=== PATIENT | male | born 1995 | race Caucasian/White ===

== ENCOUNTER 2022-03-19 08:33 | Emergency (ER) | payer BC, SELFPAY ==
--- NOTE | ~2022-03-19 | US_ITS ---
EXAMINATION: US scrotum doppler DATE: 03/19/2022 09:20 INDICATION: Right testicular pain TECHNIQUE: Testicular sonogram utilizing grayscale and Doppler COMPARISON: None. FINDINGS: The right testis measures 5.5 x 3.4 x 2.5 cm. The left testis measures 4.9 x 4.0 x 2.4 cm. Symmetric normal grayscale appearance to both testes. Facet flow with arterial and venous waveforms in both oscar oscar. There is asymmetric hyperemia to the right testis. Subtle asymmetric swelling and decreased echo genicity of the right epididymis, also with increased vascular flow relative to the normal left epidi dymis.. There is no varicocele or hydrocele. IMPRESSION: 1. Right sided epididymoorchitis with hyperemic normal-appearing right testis and hyperemic and mild ly edematous right epididymis. Reviewed, dictated and finalized at location A. IMPRESSION: 1. Right sided epididymoorchitis with hyperemic normal-appearing right testis and hyperemic and mildly edematous right epididymis.
[2022-03-19 08:35] VITALS: BP 151/92; PULSE 89; PULSE 93; RESP 16; RESP 17; TEMP 37.2; O2SAT 98; O2SAT 99
--- NOTE | 2022-03-19 08:47 | PC.NURSE ---
Pt ambulatory to bathroom, attempting a clean urine at this time.
--- NOTE | 2022-03-19 08:53 | ED.MALEGU ---
HPI - Male Genitourinary General Chief complaint: Urogenital-Male Stated complaint: SWOLLEN TESTICLE Source: patient and RN notes reviewed Mode of arrival: ambulatory Limitations: no limitations History of Present Illness Complaint: testicle pain Onset (ago): day(s) (1) Duration: constant Location: right testicle Severity: severe Quality: aching, sharp and stabbing Relieving factors: none Exacerbating factors: palpation and movement Associated symptoms: Reports denies other symptoms Related Data Sexually active: Yes Allergies Allergy/AdvReac Type Severity Reaction Status Date / Time Sulfa (Sulfonamide Allergy Unknown Verified 03/19/22 08:40 Antibiotics) Review of Systems Review of Systems: All systems reviewed & are unremarkable except as noted in HPI and below PMFSH Past Medical History Medical History (Updated 03/19/22 @ 09:39 by Rober Davis MD) No active medical problems Surgical History Surgical History (Updated 03/19/22 @ 09:01 by Rober Davis MD) No pertinent past surgical history Social History Social History (Updated 03/19/22 @ 09:01 by Rober Davis MD) Smoking status: Never smoker Substance use: current Substance use type: marijuana Exam Const: General: healthy appearing, no acute distress and alert Nutritional Appearance: well nourished Limitations: no limitations HENMT: Head: normal to inspection Eyes: Conjunctivae: conjunctivae normal Pupils: Equal, round and reactive pupils present EOM: EOMs intact bilaterally Neck: Neck: normal visual inspection Resp: Effort & Inspection: normal respiratory effort Auscultation: clear to auscultation bilaterally Cardio: Rate: regular rate Rhythm: regular rhythm GI: GI Palp: Yes Soft to palpation and No Tenderness to palpation present (GI) Auscultation: normal bowel sounds : Male General Exam: Yes normal external exam Penis: Yes normal penis Scrotum: scrotum normal Testes: testicular tenderness on the right (severe) Back/Spine/Pelvis: Cervical Spine: cervical ROM normal Thoracic/Lumbar Spine: thoraco-lumbar ROM normal Skin: General skin exam: normal color Rashes: no rashes Neuro: General: patient oriented x3, moves all extremities and no focal motor deficits Cranial nerves: Yes CN's II-XII intact bilaterally Speech: normal speech Gait exam (Neuro): Normal gait present Extrem: General: normal to inspection and no clubbing, cyanosis or edema Psych: Mental Status: mental status grossly normal Affect: normal affect Attitude: cooperative Course Vital Signs Vital signs: Vital Signs Temperature 37.2 C 03/19/22 08:35 Pulse Rate 89 03/19/22 08:35 Respiratory Rate 17 03/19/22 08:35 Blood Pressure 151/92 H 03/19/22 08:35 Pulse Oximetry 99 03/19/22 08:35 Oxygen Delivery Room Air 03/19/22 08:35 Temperature 36.9 C 03/19/22 09:54 Pulse Rate 64 03/19/22 09:54 Respiratory Rate 16 03/19/22 09:54 Blood Pressure 149/90 H 03/19/22 09:54 Pulse Oximetry 100 03/19/22 09:54 Oxygen Delivery Room Air 03/19/22 09:54 MDM - Male Genitourinary Lab Data Attestation: I reviewed the patient's lab results. Labs: Lab Results 03/19/22 Range/Units 08:48 Urine Color Light yellow (Yellow) Urine Appearance Clear (Clear) Urine pH 7.5 (5.0-8.0) Ur Specific [place] 1.015 (1.010-1.020) Urine Protein Negative (Negative) Urine Glucose (UA) Negative (Negative) Urine Ketones Negative (Negative) Ur Blood (Man) Negative (Negative) Urine Nitrate Negative (Negative) Urine Bilirubin Negative (Negative) Urine Urobilinogen 0.2 (0.2-1.0) mg/dL Leukocyte Esterase Rfl Negative (Negative) BASILIO/UL Urine Characteristics Clear Discharge Plan Discharge Clinical Impression: Acute epididymo-orchitis Patient Disposition: Home, Self-Care Condition: Stable Instructions: Epidid
--- NOTE | 2022-03-19 08:54 | PC.NURSE ---
MD assessing patient at this time
[2022-03-19 09:07] LABS: Appearance Urine Clear (Clear); Bilirubin Urine Negative (Negative); Blood Urine Negative (Negative); Glucose Urine UA Negative (Negative); Ketones Urine Negative (Negative); Leukocyte Esterase Ur Negative LEU/UL (Negative); Nitrate Urine Negative (Negative); Protein Urine Negative (Negative); Specific Grav Ur 1.015 (1.010-1.020); Urobilinogen Urine 0.2 mg/dL (0.2-1.0); pH Urine 7.5 (5.0-8.0)
--- NOTE | 2022-03-19 09:08 | PC.NURSE ---
Pt off floor for US
[2022-03-19 09:12] LABS: Add Urine Microscopic? NO; Color Urine Light Yellow (Yellow)
[2022-03-19 09:54] VITALS: BP 149/90; PULSE 64; RESP 16; TEMP 36.9; O2SAT 100
== END 2022-03-19 09:54 | disposition home or self-care (01) ==
PROVIDERS: Emergency Provider Emergency Medicine
DX: N45.3 Epididymo-orchitis (principal)
CPT/HCPCS: 76870; 81003; 93976; 99284

== ENCOUNTER 2024-07-25 17:32 | Emergency (ER) | payer BC, SELFPAY ==
--- NOTE | ~2024-07-25 | XR_ITS ---
HISTORY: fall/ALL OVER KNEE PAIN COMPARISON: None TECHNIQUE: 4 views of the right knee were performed FINDINGS: No acute or subacute fracture. Medial tibiofemoral joint space narrowing is identified. Large suprapatellar joint effusion is identified. The infrapatellar joint space is clear. IMPRESSION: Large suprapatellar joint effusion, without acute fracture. Reviewed, dictated and finalized at location A. T ORDERLY
[2024-07-25 17:33] VITALS: BP 163/103; PULSE 110; RESP 16; TEMP 37.1; O2SAT 97
--- OUTSIDE RECORDS SUMMARY | 2024-07-25 17:34 | XMS_ITS | Clinical Summary ---
Author Organization [facility] Address [address] [place] [address] Care Team Providers Care Traffic Superintendent Name Role Phone None, Provider MD Primary Care Provider Unavaila ble Allergies Active Allergy Reactions Criticality Noted Date Comments Sulfa Antibiotics Unknown,Vomiting 01/14/2019 Medications No known medications Active Problems No known active problems Encounters Date Type Department Care Team Description 06/29/2024 8:32 AM [employer] [facility] - 06/29/2024 10:25 AM [employer] [facility] [address] [place] [address] [place] [address] Abad Hair MD Generalized Weakness Discharge Disposition: Home or Self Care (Routine Discharge) 06/29/2024 Travel from Last 3 Months Social History Tobacco Use Types Packs/Day Years Used Date Smoking Tobacco: Never Smokeless Tobacco: Never Tobacco Cessation:Counseling Given: Not Answered Alcohol Use Standard Drinks/Week Comments Never 0 (1 standard drink = 0.6 oz pur e alcohol) Sex and Gender Information Value Date Recorded Sex Assigned at Male 06/29/2024 8:47 AM [employer] Legal Sex Male 5:59 PM [employer] Gender Identity Not on file Sexual Orientation Not on file Last Filed Vital Signs Vital Sign Reading Time Taken Comments Blood Pressure 142/89 06/29/2024 10:05 AM [employer] Pulse 68 06/29/2024 8:38 AM [employer] Temperature 36.6 C (97.9 F) 06/29/2024 8:38 AM [employer] Respiratory Rate 16 06/29/2024 8:38 AM [employer] Oxygen Saturation 99% 06/29/2024 10:05 AM [employer] Inhaled Oxygen Concentration - - Weight 108.9 kg (240 lb) 06/29/2024 8:38 AM [employer] Height 170.2 cm (5' 7 ) 06/29/2024 8:38 AM [employer] Body Mass Index 37.59 06/29/2024 8:38 AM [employer] Plan of Treatment Health Maintenance Due Date Last Done Comments Annual Physical 12/18/1999 Hepatitis C 2014 DTaP, Tdap and Td Vaccines (4 - Tdap) 12/18/2015 04/19/1998, 07/07/1997, 04/25/1997, Additional history exists COVID-19 Vaccine ( season) 2024 Influenza Adult (#1) 2024 Hepatitis B Vaccines Completed 07/07/1997, 02/23/1997, 1996 HPV Vaccines Aged Out No longer eligi ble based on patient's age to complete this topic Meningococcal B Vaccine Aged Out No l onger eligible based on patient's age to complete this topic Meningococcal Vaccine Aged Out No sabas augustine eligible based on patient's age to complete this topic Pneumococcal Vaccine: Pediatrics (0 to 5 Years) and At-Risk Patients (6 to 64 Years) Aged Out No longer eligible based on patient's age to complete this topic RSV Immunizations Under 20 Months Aged Out No longer eligible based on patient's age to complete this topic Procedures Procedure Name Priority Date/Time Associated Diagnosis Comments ECG 12-LEAD Routine 06/29/2024 9:19 AM [employer] CORONAVIRUS (COVID-19) ANTIGEN STAT 06/29/2024 9:08 AM [employer] INFLUENZA A & B STAT 06/29/2024 9:08 AM [employer] TROPONIN, QUANT STAT 06/29/2024 9:03 AM [employer] COMPREHENSIVE METABOLIC PANEL STAT 06/29/2024 9:03 AM [employer] CBC W/DIFF AUTOMATED STAT 06/29/2024 9:03 AM SMO[facility] [employer] CT HEAD WO CON STAT 06/29/2024 8:58 AM SMO[employer] from Last 3 Months Results * ECG 12 lead (06/29/2024 9:19 AM S[employer]) 06/29/2024 9:19 AM [employer] Narrative [facility] - 06/29/2024 2:23 PM [employer] [address] 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1995 Requested By: ABAD HAIR Order Number: [id number] Reading : Kevin Almanzar Measurements Intervals [place] Rate: 55 P: 60 VT: 149 QRS: 55 QRSD: 102 T: 59 QT: 433 QTc: 417 Interpretive Statements SINUS BRADYCARDIA WITH MARKED SINUS ARRHYTHMIA noise ING TOBACCO P[employer]ER HAND us Abad Hair MD ECG ORDERABLES Final Resul t [facility] * CORONAVIRUS (COVID-19) ANTIGEN (06/29/2024 9:08 AM [employer]) CORONAVIRUS ANTIGEN IA NEGATIVE NEGATIVE 06/29/2024 9:51 AM SMO[employer]BAC[employer] [facility] Comment: NEGATIVE RESULTS DO NOT RULE OUT SARS-COV-2 INFECTION AND SHOULD NOT BE USED THE SOLE BASIS FOR TREATMENT OR PATIENT MANAGEMENT DECISIONS, INCLUDING INFECTION CONTROL DECISIONS. NEGATIVE RESULTS SHOULD BE CONSIDERED IN THE CONTEXT OF A PATIENT'S RECENT EXPOSURES, HISTORY AND THE PRESENCE OF CLINICAL SIGNS AND SYMPTOMS CONSISTENT WITH COVID 19. THIS TEST HAS BEEN AUTHORIZED BY THE FDA UNDER AN EMERGENCY USE AUTHORIZATION (EUA) FOR USE BY AUTHORIZED LABORATORIES. SPECIMEN TYPE NASAL 06/29/2024 9:26 AM SMOKING [employer]BACCO P[employer]ER HAND [facility] NASAL NASAL STRUCTURE / Unknown 06/29/2024 9:08 AM [employer] Abad Hair MD MICROBIOLOGY - GENERAL YONY MALONE Final Result Performing Organization Address [facility] Co de Phone Number [facility] [address] [place] [address], * INFLUENZA A & B (06/29/2024 9:08 AM [employer]MOKING [employer]AC[employer]) SPECIMEN TYPE (INFLUENZA) NASOPHARYNGEAL SWAB 06/29/2024 9:26 AM [employer]AC[employer] [facility] INFLUENZA A NEGATIVE NEGATIVE 06/29/2024 9:52 AM SMO[employer]AC[employer] [facility] INFLUENZA B NEGATIVE NEGATIVE 06/29/2024 9:52 AM [employer] [facility] Comment: A NEGATIVE RESULT DOES NOT EXCLUDE INFLUENZA VIRUS INFECTION. IF INFLUENZA IS CIRCULATING IN YOUR COMMUNITY, A DIAGNOSIS OF INFLUENZA SHOULD BE CONSIDERED BASED ON A PATIENT'S CLINICAL PRESENTATION AND EMPIRIC ANTIVIRAL TREATMENT SHOULD BE CONSIDERED IF INDICATED. NASOPHARYNGEAL SWAB / Unknown 06/29/2024 9:08 AM SMO[employer] Abad Hair MD MICROBIOLOGY - GENERAL YONY MALONE Final Result Performing Organization Address City/[facility] Co de Phone Number [facility] [address] [place] [address], * (ABNORMAL) COMPREHENSIVE METABOLIC PANEL (06/29/2024 9:03 AM [employer]MOKING [employer]) SODIUM S/P/B 139 136 - 145 MMOL/L 06/29/2024 9:27 AM [employer] [facility] POTASSIUM S/P/B 4.5 3.5 - 5.1 MMOL/L 06/29/2024 9:27 AM [employer] [facility] CHLORIDE S/P/B 102 98 - 107 MMOL/L 06/29/2024 9:27 AM [facility] CO2 24.3 21.0 - 32.0 MMOL/L 06/29/2024 9:27 AM [facility] GLUCOSE 109(H) 70 - 99 MG/DL 06/29/2024 9:27 AM [facility] Comment: FASTING GLUCOSE 100 TO 125 MG/DL IS CONSISTENT WITH IMPAIRED FASTING GLUCOSE. FASTING GLUCOSE >125 MG/DL IS CONSISTENT WITH DIABETES. RANDOM GLUCOSE >200 MG/DL WITH HYPERGLYCEMIC SYMPTOMS IS CONSISTENT WITH DIABETES. PER ADA GUIDELINES BUN 11 6 - 24 MG/DL 06/29/2024 9:27 AM [facility] CREATININE S/P/B 0.94 0.70 - 1.30 MG/DL 06/29/2024 9:27 AM [facility] CALCIUM S/P/B 9.5 8.4 - 10.5 MG/DL 06/29/2024 9:27 AM [facility] BILIRUBIN TOTAL S/P/B 0.4 0.2 - 1.0 MG/DL 06/29/2024 9:27 AM [facility] Comment: THIS ASSAY IS NOT RECOMMENDED FOR PATIENTS UNDERGOING TREATMENT WITH ELTROMBOPAG DUE TO THE POTENTIAL FOR FALSELY ELEVATED RESULTS. ALKALINE PHOSPHATASE S/P/B 77 45 - 115 U/L 06/29/2024 9:27 AM [facility] AST 14(L) 15 - 37 U/L 06/29/2024 9:27 AM [facility] ALT 30 16 - 63 U/L 06/29/2024 9:27 AM [facility] TOTAL PROTEIN S/P/B 8.0 6.4 - 8.2 G/DL 06/29/2024 9:27 AM [facility] ALBUMIN S/P/B 4.3 3.4 - 5.0 G/DL 06/29/2024 9:27 AM [facility] ANION GAP 12.7 5.0 - 15.0 MMOL/L 06/29/2024 9:27 AM [facility] OSMOLALITY (CALC) 288 MOSM/KG 01/28/2 025 9:27 AM [facility] Comment:REFERENCE RANGE NOT ESTABLISHED GFR ESTIMATE >90 >89 ML/MIN/1. 73 M2 06/29/2024 9:27 AM [facility] GFR NOTES GFR REFERENCE S: 06/29/2024 9:27 AM [facility] Comment: THE ESTIMATED GFR IS CALCULATED USING THE 2020 CKD-EPI EQUATION. THE FOLLOWING CATEGORIES FOR GRADING RENAL FUNCTION ARE RECOMMENDED BY THE INTERNATIONAL SOCIETY OF NEPHROLOGY (KDIGO 2012 CLINICAL PRACTICE GUIDELINE). G1,NORMAL OR HIGH: >89 ml/min/1.73 m2 G2,MILDLY DECREASED: 60-89 ml/min/1.73 m2 G3A,MILDLY TO MODERATELY DECREASED: 45-59 ml/min/1.73 m2 G3B,MODERATELY TO SEVERELY DECREASED: 30-44 ml/min/1.73 m2 G4,SEVERELY DECREASED: 15-29 ml/min/1.73 m2 G5,KIDNEY FAILURE: <15 ml/min/1.73 m2 06/29/2024 9:03 AM SMO[employer] us Abad Hair MD LABORATORY Final Resul t [facility] [address] [place] [address], * (ABNORMAL) CBC W/DIFF AUTOMATED (06/29/2024 9:03 AM [employer]) WBC 9.05 4.00 - 10.80 x10'3/uL 06/29/2024 9:07 AM [facility] RBC 5.74 4.50 - 6.10 x10'6/uL 06/29/2024 9:07 AM [facility] HGB 16.2 13.0 - 18.0 G/DL 06/29/2024 9:07 AM [facility] HCT 46.6 37.0 - 52.0 % 06/29/2024 9:07 AM [facility] MCV 81.2 78.0 - 100.0 FL 06/29/2024 9:07 AM [facility] MCH 28.2 27.0 - 31.0 PG 06/29/2024 9:07 AM [facility] MCHC 34.8 33.0 - 36.0 G/DL 06/29/2024 9:07 AM [facility] RDW 12.5 11.5 - 14.5 % 06/29/2024 9:07 AM [facility] PLT 355(H) 150 - 350 x10'3/uL 06/29/2024 9:07 AM [facility] MPV 9.2 7.4 - 10.4 FL 06/29/2024 9:07 AM [facility] CBC COMMENT NORMAL REFERENCE RANGE NOT ESTABLISHED FOR THE PROPORTIONAL LEUKOCYTE DIFFERENTIAL. 06/29/2024 9:07 AM [facility] NEUTROPHILS % 67.3 % 06/29/2024 9:07 AM [facility] LYMPHOCYTES % 23.8 % 06/29/2024 9:07 AM [facility] MONOCYTES % 6.4 % 06/29/2024 9:07 AM [facility] EOSINOPHILS % 1.4 % 06/29/2024 9:07 AM [facility] BASOPHILS % 0.8 % 06/29/2024 9:07 AM [facility] IMMATURE GRANS % 0.3 % 06/29/19 9:07 AM [facility] NRBC % 0.0 % 06/29/2024 9:07 AM [facility] ABS. NEUTROPHILS 6.09 1.60 - 8.30 x10'3/uL 06/29/2024 9:07 AM [facility] ABS. LYMPHOCYTES 2.15 0.80 - 4.70 x10'3/uL 06/29/2024 9:07 AM [facility] ABS. MONOCYTES 0.58 0.00 - 1.50 x10'3/uL 06/29/2024 9:07 AM [facility] ABS. EOSINOPHILS 0.13 0.00 - 0.40 x10'3/uL 06/29/2024 9:07 AM [facility] ABS. BASOPHILS 0.07 0.00 - 0.20 x10'3/uL 06/29/2024 9:07 AM SMOKING [employer]BACCO [employer]ER HAND [facility] ABS. IMMATURE GRANULOCYTES 0.03 0.00 - 0.03 x10'3/uL 06/29/2024 9:07 AM [employer]MOKING [employer]ACCO [employer] [facility] ABS. NUCLEATED RBC'S 0.00 0.00 - 0.01 x10'3/uL 06/29/2024 9:07 AM SMOKING [employer]ACCO [employer] [facility] 06/29/2024 9:03 AM SMOKING [employer]BACCO [employer] us Abad Hair MD LABORATORY Final Resul t Performing Organization Address City/[facility]/[place] [address], * TROPONIN, QUANT (06/29/2024 9:03 AM SMOKING [employer]ACCO [employer]) TROPONIN I HIGH SENSITIVITY 4 0 - 76 ng/L 06/29/2024 9:27 AM SMOKING [employer]BAC[employer]ER HAND [facility] 06/29/2024 9:03 AM SMOKING [employer]BACCO P[employer] HAND us Abad Hair MD LABORATORY Final Resul t Performing Organization Address [facility] [place] [place] [address], * CT HEAD WO CON (06/29/2024 8:58 AM SMOKING [employer]BACCO [employer]) Anatomical Region Laterality Modality Head Computed Tomogra phy 06/29/2024 9:04 AM SMOKING [employer]BACCO [employer] HAND Impressions 06/29/2024 9:11 AM [employer]MO[employer] IMPRESSION: Unremarkable. Ordered By: ABAD HAIR Interpreted By: Fabio Chowdhury MD, 06/29/2024 9:04 AM Narrative 06/29/2024 9:11 AM [employer]MOKING [employer]BACCO [employer] [address] [place] [address] Examination: CT of the head without contrast. Exam time: 0902 hours. Clinical history: Headache. Hypertension. Near syncope. Comparison: None. Technique: Noncontrast axial scans from skull base to vertex. Sagittal and coronal reconstructions were performed from the data set. A dose lowering technique was used for this procedure, which may include, but is not limited to, dose reduction techniques, automated exposure control, the use of iterative reconstruction and ALARA/Image Gently techniques. Findings: The ventricles are normal in size and configuration. No shift of midline or mass effect is noted. No areas of abnormal x-ray attenuation are identified. In particular, there is no mass, hemorrhage or sign of acute stroke. No extracerebral fluid collections. The mastoid air cells and visualized paranasal sinuses appear clear. Procedure Note Fabio Chowdhury MD - 06/29/[address] [place] [address] Examination: CT of the head without contrast. Exam time: 0902 hours. Clinical history: Headache. Hypertension. Near syncope. Comparison: None. Technique: Noncontrast axial scans from skull base to vertex. Sagittal andcoronal reconstructions were performed from the data set. A dose loweringtechnique was used for this procedure, which may include, but is notlimited to, dose reduction techniques, automated exposure control, the useof iterative reconstruction and ALARA/Image Gently techniques. Findings: The ventricles are normal in size and configuration. No shift ofmidline or mass effect is noted. No areas of abnormal x-ray attenuationare identified. In particular, there is no mass, hemorrhage or sign ofacute stroke. No extracerebral fluid collections. The mastoid air cellsand visualized paranasal sinuses appear clear. IMPRESSION: Unremarkable. Ordered By: ABAD HAIR Interpreted By: Fabio Chowdhury MD, 06/29/2024 9:04 AM us Abad Hair MD CT Final Resul t from Last 3 Months Care Teams Traffic Superintendent Relationship Specialty Start Date End Date None, Provider, PCP - General UNKNOWN PHYSICIAN SPECIALTY 03/05/24
--- OUTSIDE RECORDS SUMMARY | 2024-07-25 17:34 | XMS_ITS | Encounter Summary ---
Author Organization [facility] Address [address] [place] [address] Care Team Providers Care Laundry Operator Wash Room Name Role Phone None, Provider Primary Care Provider Unavaila ble Encounter Details Date Type Department Care Team (Late st Contact Info) Description 11/07/2018 Abstract [facility] CONVERSION [address] [address] , Generic Conversion, Social History Tobacco Use Types Packs/Day Years Used Date Smoking Tobacco: Never Assessed Sex and Gender Information Value Date Recorded Sex Assigned at Male 06/29/2024 8:[address] RESEARCHER Legal Sex Male 5:[address] RESEARCHER Gender Identity Not on file Sexual Orientation Not on file documented as of this encounter Plan of Treatment Not on file documented as of this encounter Visit Diagnoses Not on filedocumented in this encounter Additional Health Concerns Infection Onset Date Last Indicated Resolved Time COVID-19 Rule Out 06/29/2024 06/29/2024 06/29/2024 9:[address] RESEARCHER documented as of this encounter Care Teams Laundry Operator Wash Room Relationship Specialty Start Date End Date None, Provider, PCP - General UNKNOWN PHYSICIAN SPECIALTY 03/05/24 documented as of this encounter
--- OUTSIDE RECORDS SUMMARY | 2024-07-25 17:34 | XMS_ITS | Referral Summary ---
Author Organization [facility] Address [address] [place] [address] Care Team Providers Care Science Intern Name Role Phone Unavailable Primary Care Provider Unavailabl e Source Comments [facility],non-owned Affiliates and Associated Physician Practices is amultiple site organization consisting of ambulatory clinics and hospital sitesin [place], [place], [place] and [place]. This disclosure is being madepursuant to the Care Everywhere program and may not contain all information available regarding this patient. Last updated 18.[facility] [employer] Allergies Active Allergy Reactions Criticality Noted Date Comments Sulfa Drugs Vomiting 01/15/2019 Social History Tobacco Use Types Packs/Day Years Used Date Smoking Tobacco: Never Assessed Sex and Gender Information Value Date Recorded Sex Assigned at Not on file Gender Identity Not on file Sexual Orientation Not on file Last Filed Vital Signs Vital Sign Reading Time Taken Comments Blood Pressure 116/66 01/15/2019 4:09 PM CDT Pulse 80 01/15/2019 4:09 PM CDT Temperature 36.7 C (98 F) 01/15/2019 4:09 PM CDT Respiratory Rate 16 01/15/2019 4:09 PM CDT Oxygen Saturation 100% 01/15/2019 4:09 PM CDT Inhaled Oxygen Concentration - - Weight 73 kg (161 lb) 01/15/2019 4:09 PM CDT Height 167.6 cm (5' 6 ) 01/15/2019 4:09 PM CDT Body Mass Index 25.99 01/15/2019 4:09 PM CDT Plan of Treatment Not on file
--- OUTSIDE RECORDS SUMMARY | 2024-07-25 17:34 | XMS_ITS | Patient Health Summary ---
Author Organization [facility] [employer] Address [address] [place] [address] Care Team Providers Care Case Packer And Sealer Name Role Phone Unavailable Primary Care Provider Unavailabl e Note from [facility],non-owned Affiliates and Associated Physician Practices is amultiple site organization consisting of ambulatory clinics and hospital sitesin [place], [place], [place] and [place]. This disclosure is being madepursuant to the Care Everywhere program and may not contain all information available regarding this patient. Last updated 18.[facility] [employer] Allergies * Sulfa Drugs(Vomiting) Social History Tobacco Use Types Packs/Day Years [...] Mass Index 25.99 01/15/2019 4:09 PM CDT Procedures * XR KNEE RIGHT 4VW OR MORE(Performed 01/15/2019) Performed for Contusion of right knee, initial encounter Results * XR KNEE RIGHT 4VW OR MORE (01/15/2019 5:00 PM CDT) Anatomical Region Laterality Modality Lower Extremity Radiographic Louisa ging 01/15/2019 5:52 PM CDT Narrative 01/15/2019 5:53 PM CDT 4 views right knee Indication: Right knee pain Findings: There is no displaced fracture or dislocation. There is no osseous destruction. Significant hypertrophic or erosive degenerative changes are not identified. Mild enthesopathic changes are present at the patellar tendon insertion. Reading Radiologist: Valentin Baker MD on 01/15/2019 at 5:53 PM Procedure Note Valentin Baker MD - 01/15/2019 4 views right knee Indication: Right knee pain Findings: There is no displaced fracture or dislocation. There is no osseous destruction. Significant hypertrophic or erosive degenerative changes are not identified. Mild enthesopathic changes are present at the patellar tendon insertion. Reading Radiologist: Valentin Baker MD on 01/15/2019 at 5:53 PM Isadora Willis Board WAREHOUSE INSULATION WORKER-LAPEL STITCHER DIAGNOSTIC IMAGI NG ORDERABLES
--- OUTSIDE RECORDS SUMMARY | 2024-07-25 17:34 | XMS_ITS | Clinical Summary ---
Author Organization [facility] Address [address] [place] [address] Care Team Providers Care Juvenile Justice Specialist Name Role Phone Unavailable Primary Care Provider Unavailabl e Source Comments [facility],non-owned Affiliates and Associated Physician Practices is amultiple site organization consisting of ambulatory clinics and hospital sitesin [place] and [place]. This disclosure is being madepursuant to the Care Everywhere program and may not contain all information available regarding this patient. Last updated 18.[facility] Allergies Active Allergy Reactions Criticality Noted Date [...] 01/15/2019 4:09 PM CDT Plan of Treatment Health Maintenance Due Date Last Done Comments HIV SCREENING 12/18/2011 HEPATITIS C SCREENING 12/13/2014 DTAP/TDAP/TD VACCINES (1 - Tdap) 12/18/2015 HEPATITIS B VACCINE (1 of 3 - 19+ 3-dose series) 12/18/2015 COVID-19 VACCINE (2023-2 5 season) 2024 INFLUENZA VACCINE (#1) 2024 DEPRESSION SCREENING 06/02/2024 ZOSTER VACCINE (1 of 2) 2046 HIB VACCINE Aged Out No longer eligi ble based on patient's age to complete this topic HPV VACCINE Aged Out No longer eligi ble based on patient's age to complete this topic MENINGOCOCCAL (Group B) VACCINE Aged Out No longer eligible based on patient's age to complete this topic MENINGOCOCCAL VACCINE Aged Out No sabas augustine eligible based on patient's age to complete this topic PNEUMOCOCCAL VACCINE Aged Out No long er eligible based on patient's age to complete this topic
--- OUTSIDE RECORDS SUMMARY | 2024-07-25 17:34 | XMS_ITS | Clinical Summary ---
Author Organization [facility] Address [address] [place] [address] Phone Care Team Providers Care Fur Puller Name Role Phone Unavailable Primary Care Provider Unavailabl e Allergies Active Allergy Reactions Criticality Noted Date Comments Sulfa (Sulfonamide Antibiotics) Unknown 12/31 Medications No known medications Social History Tobacco Use Types Packs/Day Years Used Date Smoking Tobacco: Every Day Cigarettes Smokeless Tobacco: Never Tobacco Cessation:Ready to Q uit: No; Counseling Given: No Alcohol Use Standard Drinks/Week Comments Yes 0 (1 standard drink = 0.6 oz pur e alcohol) rarely Sex and Gender Information Value Date Recorded Sex Assigned at Not on file Legal Sex Male 1:34 PM CDT Gender Identity Not on file Sexual Orientation Not on file Last Filed Vital Signs Vital Sign Reading Time Taken Comments Blood Pressure 134/75 02/03/2020 9:41 AM CDT Pulse 78 02/03/2020 9:41 AM CDT Temperature 37.3 C (99.1 F) 02/03/2020 9:41 AM CDT Respiratory Rate 16 02/03/2020 9:41 AM CDT Oxygen Saturation 98% 02/03/2020 9:41 AM CDT Inhaled Oxygen Concentration - - Weight 65.8 kg (145 lb) 01/14/2019 10:06 PM CDT Height 167.6 cm (5' 6 ) 01/14/2019 10:06 PM CDT Body Mass Index 23.4 01/14/2019 10:06 PM CDT Plan of Treatment Health Maintenance Due Date Last Done Comments DTAP/TDAP/TD VACCINES (1 - Tdap) 12/18/2015 HEPATITIS B VACCINES (1 of 3 - 19+ 3-dose series) 12/18/2015 INFLUENZA VACCINE (#1) 2024 HPV VACCINES Aged Out No longer eligi ble based on patient's age to complete this topic
--- NOTE | 2024-07-25 17:35 | ED_ITS ---
HPI - Extremity Injury (Lower) General Chief Complaint: Extremity Injury, Lower Stated Complaint: right knee injury Time Seen by Provider: 07/25/24 17:34 Source: patient Mode of arrival: ambulatory Limitations: no limitations History of Present Illness HPI Narrative: Patient is a 28-year-old male with a right knee injury after slipping today and causing injury to the right knee. His left leg slipped and his right knee state in place and twisted at the time. MD complaint: knee injury ( Right) Onset (ago): hour(s) ( 2) Injury: Right: knee Type of Injury: hyperextension and hyperflexion Place: street/outdoors Severity: moderate Severity scale (1-10): 5 Relieving factors: immobilization and other ( brace) Exacerbating factors: weight bearing and movement Context: fall and walking Associated symptoms: snap/pop sensation and able to partially bear weight Other symptoms: none Treatments prior to arrival: cold therapy Related Data Allergies Allergy/AdvReac Type Severity Reaction Status Date / Time Sulfa (Sulfonamide Allergy Unknown Verified 03/19/22 08:40 Antibiotics) Review of Systems Review of Systems: All systems reviewed & are unremarkable except as noted in HPI and below Constitutional: Constitutional: Reports no additional constitutional complaints Eyes: Eyes: Reports no additional eye complaints ENT: Reports system reviewed and no additional complaints, except as documented Cardiovascular: Cardiovascular: Reports no additional cardiovascular complaints Respiratory: Respiratory: Reports no additional respiratory complaints Gastrointestinal: Gastrointestinal: Reports no additional gastrointestinal complaints Genitourinary: Genitourinary: Reports no additional male genitourinary complaints Musculoskeletal: Musculoskeletal: Reports no additional musculoskeletal complaints Integumentary/Breasts: Skin/Breast: Reports system reviewed and no additional complaints, except as docu Neurologic: Reports system reviewed and no additional complaints, except as documented Psychiatric: Psychiatric: Reports no additional psychiatric complaints Endocrine: Endocrine: Reports no additional endocrine complaints Hematologic/Lymphatic: Hematologic/Lymphatic: Reports no additional hematologic/lymphatic complaints Allergic/Immunologic: Allergic/Immunologic: Reports no additional allergic/immunologic complaints PMFSH Past Medical History Medical History No active medical problems Surgical History Surgical History No pertinent past surgical history Social History Social History Smoking status: Never smoker Substance use: current Substance use type: marijuana Exam Const: General: healthy appearing Nutritional Appearance: well nourished Orientation/consciousness: patient oriented x3 HENMT: Head: normal to inspection Ears: external ears normal Face/Nose/Sinus: Normal external nose present Eyes: Conjunctivae: conjunctivae normal Pupils: Equal, round and reactive pupils present EOM: EOMs intact bilaterally Neck: Neck: normal visual inspection Chest: Chest palpation & inspection: normal inspection of the chest Resp: Effort & Inspection: normal respiratory effort and not labored Auscultation: clear to auscultation bilaterally and no crackles Cardio: Rate: regular rate Rhythm: regular rhythm Heart sounds: no murmurs GI: Inspection: non-distended GI Palp: Yes Soft to palpation and No Tenderness to palpation present (GI) Auscultation: normal bowel sounds : General: Yes bladder normal to palpation Back/Spine/Pelvis: Back: no CVA tenderness Skin: General skin exam: normal color Rashes: no rashes Wounds: no wounds Neuro: General: patient oriented x3 Cranial nerves: Yes Nystagmus not present Speech: normal speech Extrem: General: normal to inspection Other: tender right knee to a range of motion and palpation Psych: Mental Status: mental status grossly normal Affect: normal affect Attitude: cooperative Course Vital Signs Vital signs: Vital Signs Temperature 37.1 C 07/25/24 17:33 Pulse Rate 110 H 07/25/24 17:33 Respiratory Rate 16 07/25/24 17:33 Blood Pressure 163/103 H 07/25/24 17:33 Pulse Oximetry 97 07/25/24 17:33 Oxygen Delivery Room Air 07/25/24 17:33 Temperature 37.1 C 07/25/24 17:33 Pulse Rate 110 H 07/25/24 17:33 Respiratory Rate 16 07/25/24 17:33 Blood Pressure 163/103 H 07/25/24 17:33 Pulse Oximetry 97 07/25/24 17:33 Oxygen Delivery Room Air 07/25/24 17:33 MDM - Extremity Injury (Lower) MDM Narrative Medical decision making narrative: patient is a 28-year-old male with a right knee injury today. We will do x-ray and pain control. Imaging Data Attestation: I personally reviewed and interpreted this imaging study as follows: Radiologist's impression: Right knee x-ray shows IMPRESSION: Large suprapatellar joint effusion, without acute fracture. Discharge Plan Discharge Clinical Impression: Acute internal derangement of knee, Effusion of knee joint right Patient Disposition: Home, Self-Care Condition: Stable Instructions: Knee Pain (ED) Additional Instructions: please follow-up with the primary doctor in the next week. I suggested MRI in the next 1-2 weeks with the primary doctor. Further you may want to see an records management specialist in the next 1-2 weeks. Patient Language: Kinyarwanda Prescriptions: New hydrocodone-acetaminophen 5-325 mg tablet 1 tablet PO Q8H PRN (Reason: pain) Qty: 20 0RF Rx Instructions: 1-2 tabs per dose methylprednisolone [Medrol (Alexis)] 4 mg tablets,dose pack See Rx Instructions .ROUTE .COMPLEX Qty: 21 0RF Rx Instructions: orally per package directions No Action doxycycline monohydrate 100 mg capsule 100 mg PO DAILY 10 Days Qty: 10 0RF hydrocodone-acetaminophen 5-325 mg tablet 1 tablet PO Q8H PRN (Reason: pain) Qty: 10 0RF Follow-up/Referrals: UNKNOWN,DOCTOR [Primary Care Provider] - Stand Alone Forms: Work/School Release IP Time of Disposition: 18:47
--- OUTSIDE RECORDS SUMMARY | 2024-07-25 17:59 | XMS_ITS | Patient Health Summary ---
Author Organization [facility] [employer] Address [address] [place] [address] Care Team Providers Care Handkerchief Presser Name Role Phone Unavailable Primary Care Provider Unavailabl e Note from [facility],non-owned Affiliates and Associated Physician Practices is amultiple site organization consisting of ambulatory clinics and hospital sitesin [place], [place], [place] and [place]. This disclosure is being madepursuant to the Care Everywhere program and may not contain all information available regarding this patient. Last updated 18.[facility] Allergies * Sulfa Drugs(Vomiting) Social History Tobacco [...] 01/15/2019 at 5:53 PM Isadora Willis Board ER NURSE-SCHOOL LUNCH MANAGER DIAGNOSTIC IMAGI NG ORDERABLES
--- OUTSIDE RECORDS SUMMARY | 2024-07-25 17:59 | XMS_ITS | Referral Summary ---
Author Organization [facility] Address [address] [place] [address] Care Team Providers Care Patient Care Secretary Name Role Phone Unavailable Primary Care Provider Unavailabl e Source Comments [facility],non-owned Affiliates and Associated Physician Practices is amultiple site organization consisting of ambulatory clinics and hospital sitesin [place], [place], [place] and [place]. This disclosure is being madepursuant to the Care Everywhere program and may not contain all information available regarding this patient. Last updated 18.[facility] [employer] Allergies Active Allergy Reactions Criticality Noted Date [...]
--- OUTSIDE RECORDS SUMMARY | 2024-07-25 17:59 | XMS_ITS | Clinical Summary ---
Author Organization [facility] Address [address] [place] [address] Phone Care Team Providers Care Turf Sales Person Name Role Phone Unavailable Primary Care Provider [...]
--- OUTSIDE RECORDS SUMMARY | 2024-07-25 17:59 | XMS_ITS | Clinical Summary ---
Author Organization [facility] Address [address] [place] [address] Care Team Providers Care Casework Supervisor Name Role Phone None, Provider MD Primary Care Provider Unavaila ble Allergies Active Allergy Reactions Criticality Noted Date Comments Sulfa Antibiotics Unknown,Vomiting 01/14/2019 Medications No known medications Active Problems No known active problems Encounters Date Type Department Care Team Description 06/29/2024 8:32 AM BRAKE ASSEMBLER - 06/29/2024 10:25 AM BRAKE ASSEMBLER Emergency [facility] [address] [place] [address] [place] [address] Abad Hair MD Generalized Weakness Discharge Disposition: [...] Sex Assigned at Male 06/29/2024 8:47 AM BRAKE ASSEMBLER Legal Sex Male 5:59 PM BRAKE ASSEMBLER Gender Identity Not on file Sexual Orientation Not on file Last Filed Vital Signs Vital Sign Reading Time Taken Comments Blood Pressure 142/89 06/29/2024 10:05 AM BRAKE ASSEMBLER Pulse 68 06/29/2024 8:38 AM BRAKE ASSEMBLER Temperature 36.6 C (97.9 F) 06/29/2024 8:38 AM BRAKE ASSEMBLER Respiratory Rate 16 06/29/2024 8:38 AM BRAKE ASSEMBLER Oxygen Saturation 99% 06/29/2024 10:05 AM BRAKE ASSEMBLER Inhaled Oxygen Concentration - - Weight 108.9 kg (240 lb) 06/29/2024 8:38 AM BRAKE ASSEMBLER Height 170.2 cm (5' 7 ) 06/29/2024 8:38 AM BRAKE ASSEMBLER Body Mass Index 37.59 06/29/2024 8:38 AM BRAKE ASSEMBLER Plan of Treatment Health Maintenance Due Date [...] Comments ECG 12-LEAD Routine 06/29/2024 9:19 AM BRAKE ASSEMBLER CORONAVIRUS (COVID-19) ANTIGEN STAT 06/29/2024 9:08 AM BRAKE ASSEMBLER INFLUENZA A & B STAT 06/29/2024 9:08 AM BRAKE ASSEMBLER TROPONIN, QUANT STAT 06/29/2024 9:03 AM BRAKE ASSEMBLER COMPREHENSIVE METABOLIC PANEL STAT 06/29/2024 9:03 AM BRAKE ASSEMBLER CBC W/DIFF AUTOMATED STAT 06/29/2024 9:[address] HEAD WO CON STAT 06/29/2024 8:58 AM BRAKE ASSEMBLER from Last 3 Months Results * ECG 12 lead (06/29/2024 9:19 AM BRAKE ASSEMBLER) 06/29/2024 9:19 AM BRAKE ASSEMBLER Narrative [facility] - 06/29/2024 2:23 PM BRAKE ASSEMBLER [address] [place] [address] Test Date: 2024-06-29 Pat Name: ROLAND LATIF Department: 3 Room: EXAM 606 Gender: Male Computer Lab Aide: : 1995 Requested By: ABAD HAIR Order Number: [id number] Reading : Kevin Almanzar Measurements Intervals Bartlett Rate: 55 P: 60 DC: 149 QRS: 55 QRSD: 102 T: 59 QT: 433 QTc: 417 Interpretive Statements SINUS BRADYCARDIA WITH MARKED SINUS ARRHYTHMIA noise E ASSEMBLER Procedure Note Kevin Almanzar MD - 06/29/[address] [place] [address] Test Date: 2024-06-29 Pat Name: ROLAND LATIF Department: 3 Room: EXAM 606 Gender: Male Computer Lab Aide: : 1995 Requested By: ABAD HAIR Order Number: [id number] Reading : Kevin Almanzar Measurements Intervals Bartlett Rate: 55 P: 60 DC: 149 QRS: 55 QRSD: 102 T: 59 QT: 433 QTc: 417 Interpretive Statements SINUS BRADYCARDIA WITH MARKED SINUS ARRHYTHMIA noise E ASSEMBLER us Abad Hair MD ECG ORDERABLES Final Resul t [facility] * CORONAVIRUS (COVID-19) ANTIGEN (06/29/2024 9:08 AM BRAKE ASSEMBLER) CORONAVIRUS ANTIGEN IA NEGATIVE NEGATIVE 06/29/2024 9:51 AM BRAKE ASSEMBLER [facility] Comment: NEGATIVE RESULTS DO NOT [...] LABORATORIES. SPECIMEN TYPE NASAL 06/29/2024 9:26 AM BRAKE ASSEMBLER [facility] NASAL NASAL STRUCTURE / Unknown 06/29/2024 9:08 AM BRAKE ASSEMBLER Abad Hair MD MICROBIOLOGY - GENERAL YONY MALONE Final Result Performing Organization Address [facility] Co de Phone Number [facility] [address] [place] [address], * INFLUENZA A & B (06/29/2024 9:08 AM BRAKE ASSEMBLER) SPECIMEN TYPE (INFLUENZA) NASOPHARYNGEAL SWAB 06/29/2024 9:26 AM BRAKE ASSEMBLER [facility] INFLUENZA A NEGATIVE NEGATIVE 06/29/2024 9:52 AM BRAKE ASSEMBLER [facility] INFLUENZA B NEGATIVE NEGATIVE 06/29/2024 9:52 AM BRAKE ASSEMBLER [facility] Comment: A NEGATIVE RESULT DOES NOT EXCLUDE INFLUENZA VIRUS INFECTION. IF INFLUENZA IS CIRCULATING IN YOUR COMMUNITY, A DIAGNOSIS OF INFLUENZA SHOULD BE CONSIDERED BASED ON A PATIENT'S CLINICAL PRESENTATION AND EMPIRIC ANTIVIRAL TREATMENT SHOULD BE CONSIDERED IF INDICATED. NASOPHARYNGEAL SWAB / Unknown 06/29/2024 9:08 AM BRAKE ASSEMBLER Abad Hair MD MICROBIOLOGY - GENERAL YONY MALONE Final Result Performing Organization Address [facility] Co de Phone Number [facility] [address] [place] [address], * (ABNORMAL) COMPREHENSIVE METABOLIC PANEL (06/29/2024 9:03 AM BRAKE ASSEMBLER) SODIUM S/P/B 139 136 - 145 MMOL/L 06/29/2024 9:27 AM BRAKE ASSEMBLER [facility] POTASSIUM S/P/B 4.5 3.5 - 5.1 MMOL/L 06/29/2024 9:27 AM BRAKE ASSEMBLER [facility] CHLORIDE S/P/B 102 98 - 107 MMOL/L 06/29/2024 9:27 AM [facility] CO2 24.3 21.0 - 32.0 MMOL/L 06/29/2024 9:27 AM [facility] GLUCOSE 109(H) 70 - 99 MG/DL 06/29/2024 9:27 AM [facility] Comment: FASTING GLUCOSE 100 TO 125 MG/DL IS CONSISTENT WITH IMPAIRED FASTING GLUCOSE. FASTING GLUCOSE >125 MG/DL IS CONSISTENT WITH DIABETES. RANDOM GLUCOSE >200 MG/DL WITH HYPERGLYCEMIC SYMPTOMS IS CONSISTENT WITH DIABETES. PER ADA GUIDELINES BUN 11 6 - 24 MG/DL 06/29/2024 9:27 AM [facility] CREATININE S/P/B 0.94 0.70 - 1.30 MG/DL 06/29/2024 9:27 AM [facility] CALCIUM S/P/B 9.5 8.4 - 10.5 MG/DL 06/29/2024 9:27 AM [facility] BILIRUBIN TOTAL S/P/B 0.4 0.2 - 1.0 MG/DL 06/29/2024 9:27 AM [facility] Comment: THIS ASSAY IS NOT RECOMMENDED FOR PATIENTS UNDERGOING TREATMENT WITH ELTROMBOPAG DUE TO THE POTENTIAL FOR FALSELY ELEVATED RESULTS. ALKALINE PHOSPHATASE S/P/B 77 45 - 115 U/L 06/29/2024 9:27 AM [facility] AST 14(L) 15 - 37 U/L 06/29/2024 9:27 AM [facility] ALT 30 16 - 63 U/L 06/29/2024 9:27 AM [facility] TOTAL PROTEIN S/P/B 8.0 6.4 - 8.2 G/DL 06/29/2024 9:27 AM [facility] ALBUMIN S/P/B 4.3 3.4 - 5.0 G/DL 06/29/2024 9:27 AM [facility] ANION GAP 12.7 5.0 - 15.0 MMOL/L 06/29/2024 9:27 AM [facility] OSMOLALITY (CALC) 288 MOSM/KG 01/28/2 025 9:27 AM [facility] Comment:REFERENCE RANGE NOT ESTABLISHED GFR ESTIMATE >90 >89 ML/MIN/1. 73 M2 06/29/2024 9:27 AM [facility] GFR NOTES GFR REFERENCE S: 06/29/2024 9:27 AM [facility] Comment: THE ESTIMATED GFR IS [...] FAILURE: <15 ml/min/1.73 m2 06/29/2024 9:03 AM BRAKE ASSEMBLER us Abad Hair MD LABORATORY Final Resul t [facility] [address] [place] [address], * (ABNORMAL) CBC W/DIFF AUTOMATED (06/29/2024 9:03 AM BRAKE ASSEMBLER) WBC 9.05 4.00 - 10.80 x10'3/uL 06/29/2024 9:07 AM [facility] RBC 5.74 4.50 - 6.10 x10'6/uL 06/29/2024 9:07 AM [facility] HGB 16.2 13.0 - 18.0 G/DL 06/29/2024 9:07 AM [facility] HCT 46.6 37.0 - 52.0 % 06/29/2024 9:07 AM [facility] MCV 81.2 78.0 - 100.0 FL 06/29/2024 9:07 AM [facility] MCH 28.2 27.0 - 31.0 PG 06/29/2024 9:07 AM [facility] MCHC 34.8 33.0 - 36.0 G/DL 06/29/2024 9:07 AM [facility] RDW 12.5 11.5 - 14.5 % 06/29/2024 9:07 AM [facility] PLT 355(H) 150 - 350 x10'3/uL 06/29/2024 9:07 AM [facility] MPV 9.2 7.4 - 10.4 FL 06/29/2024 9:07 AM [facility] CBC COMMENT NORMAL REFERENCE RANGE NOT ESTABLISHED FOR THE PROPORTIONAL LEUKOCYTE DIFFERENTIAL. 06/29/2024 9:07 AM [facility] NEUTROPHILS % 67.3 % 06/29/2024 9:07 AM [facility] LYMPHOCYTES % 23.8 % 06/29/2024 9:07 AM [facility] MONOCYTES % 6.4 % 06/29/2024 9:07 AM [facility] EOSINOPHILS % 1.4 % 06/29/2024 9:07 AM [facility] BASOPHILS % 0.8 % 06/29/2024 9:07 AM [facility] IMMATURE GRANS % 0.3 % 06/29/19 9:07 AM [facility] NRBC % 0.0 % 06/29/2024 9:07 AM [facility] ABS. NEUTROPHILS 6.09 1.60 - 8.30 x10'3/uL 06/29/2024 9:07 AM [facility] ABS. LYMPHOCYTES 2.15 0.80 - 4.70 x10'3/uL 06/29/2024 9:07 AM [facility] ABS. MONOCYTES 0.58 0.00 - 1.50 x10'3/uL 06/29/2024 9:07 AM [facility] ABS. EOSINOPHILS 0.13 0.00 - 0.40 x10'3/uL 06/29/2024 9:07 AM [facility] ABS. BASOPHILS 0.07 0.00 - 0.20 x10'3/uL 06/29/2024 9:07 AM BRAKE ASSEMBLER [facility] ABS. IMMATURE GRANULOCYTES 0.03 0.00 - 0.03 x10'3/uL 06/29/2024 9:07 AM BRAKE ASSEMBLER [facility] ABS. NUCLEATED RBC'S 0.00 0.00 - 0.01 x10'3/uL 06/29/2024 9:07 AM BRAKE ASSEMBLER [facility] 06/29/2024 9:03 AM BRAKE ASSEMBLER us Abad Hair MD LABORATORY Final Resul t Performing Organization Address [facility]/[place] [address], * TROPONIN, QUANT (06/29/2024 9:03 AM BRAKE ASSEMBLER) TROPONIN I HIGH SENSITIVITY 4 0 - 76 ng/L 06/29/2024 9:27 AM BRAKE ASSEMBLER [facility] 06/29/2024 9:03 AM BRAKE ASSEMBLER us Abad Hair MD LABORATORY Final Resul t Performing Organization Address [facility] [place] [address], * CT HEAD WO CON (06/29/2024 8:58 AM BRAKE ASSEMBLER) Anatomical Region Laterality Modality Head Computed Tomogra phy 06/29/2024 9:04 AM BRAKE ASSEMBLER Impressions 06/29/2024 9:11 AM BRAKE ASSEMBLER IMPRESSION: Unremarkable. Ordered By: ABAD HAIR Interpreted By: Fabio Chowdhury MD, 06/29/2024 9:04 AM Narrative 06/29/2024 9:11 AM BRAKE ASSEMBLER [address] [place] [address] Examination: CT of the head without contrast. [...] Procedure Note Fabio Chowdhury MD - 06/29/[address] [place] [address] Examination: CT of the head without contrast. [...] t from Last 3 Months Care Teams Casework Supervisor Relationship Specialty Start Date End Date None, Provider, PCP - General UNKNOWN PHYSICIAN SPECIALTY 03/05/24
--- OUTSIDE RECORDS SUMMARY | 2024-07-25 17:59 | XMS_ITS | Clinical Summary ---
Author Organization [facility] Address [address] [place] [address] Care Team Providers Care Electric Locomotive Crane Operator Name Role Phone Unavailable Primary Care Provider Unavailabl e Source Comments [facility],non-owned Affiliates and Associated Physician Practices is amultiple site organization consisting of ambulatory clinics and hospital sitesin [place], [place], [place] and [place]. This disclosure is being madepursuant to the Care Everywhere program and may not contain all information available regarding this patient. Last updated 18.[facility] Allergies Active Allergy Reactions Criticality Noted Date [...]
--- OUTSIDE RECORDS SUMMARY | 2024-07-25 17:59 | XMS_ITS | Encounter Summary ---
Author Organization [facility] Address [address] [place] [address] Care Team Providers Care Machine Stamper Name Role Phone None, Provider Primary Care Provider Unavaila ble Encounter Details Date Type Department Care Team (Late st Contact Info) Description 11/07/2018 Abstract [facility] CONVERSION [address] [place] [address] , Generic Conversion, Social History Tobacco Use Types Packs/Day Years Used Date Smoking Tobacco: Never Assessed Sex and Gender Information Value Date Recorded Sex Assigned at Male 06/29/2024 8:47 AM PRINCIPAL DEVELOPER Legal Sex Male 5:59 PM PRINCIPAL DEVELOPER Gender Identity Not on file Sexual Orientation Not on file documented as of this encounter Plan of Treatment Not on file documented as of this encounter Visit Diagnoses Not on filedocumented in this encounter Additional Health Concerns Infection Onset Date Last Indicated Resolved Time COVID-19 Rule Out 06/29/2024 06/29/2024 06/29/2024 9:52 AM PRINCIPAL DEVELOPER documented as of this encounter Care Teams Machine Stamper Relationship Specialty Start Date End Date None, Provider, PCP - General UNKNOWN PHYSICIAN SPECIALTY 03/05/24 documented as of this encounter
[2024-07-25] MEDS: HYDROcodone/acetaminophen (*CRX) 5-325 MG TABLET 2 TAB PO (18:19)
[2024-07-25 18:49] VITALS: BP 145/85; PULSE 87; RESP 20; O2SAT 98
== END 2024-07-25 18:49 | disposition home or self-care (01) ==
PROVIDERS: Emergency Provider Emergency Medicine
DX: M25.461 Effusion, right knee (principal); M23.91 Unspecified internal derangement of right knee; W01.0XXA Fall on same level from slipping, tripping and stumbling without subsequent striking against object, initial encounter
CPT/HCPCS: 73564; 99283; A9270